=== PATIENT | male | born 1960 | race Caucasian/White ===

== ENCOUNTER 2020-02-25 18:17 | Emergency (ER) | payer MEDICAID ==
[~2020-02-25] VITALS: Ht 170.2 cm; Wt 86.4 kg
[~2020-02-25 18:17] MED LIST: HYDR-4353 PO
[2020-02-25 18:21] VITALS: BP 163/87
[2020-02-25] MEDS ORDERED: IBUP-1985 PO (19:42)
== END 2020-02-25 20:00 | disposition home or self-care (01) ==
LOC: ER 18:18
DX: S29.011A Strain of muscle and tendon of front wall of thorax, initial encounter (principal); I10 Essential (primary) hypertension; E78.00 Pure hypercholesterolemia, unspecified; G89.29 Other chronic pain; X58.XXXA Exposure to other specified factors, initial encounter; Y93.89 Activity, other specified; Y92.89 Other specified places as the place of occurrence of the external cause; Y99.9 Unspecified external cause status
CPT/HCPCS: 71045; 99283

== ENCOUNTER 2020-04-07 08:10 | Emergency (ER) | payer MEDICAID ==
[~2020-04-07] VITALS: Ht 167.6 cm; Wt 88.2 kg
[~2020-04-07 08:10] MED LIST changes: +IBUP-1985 PO
[2020-04-07 08:36] LABS: BASOPHILS % (AUTO) 0.8 % (0-1); EOSINOPHILS # (AUTO) 0.1 X10'3 (0-0.9); EOSINOPHILS % (AUTO) 1.5 % (0-6); HEMATOCRIT 44.4 % (42.0-52.0); HEMOGLOBIN 14.7 g/dl (14.0-17.9); LYMPHOCYTES # (AUTO) 1.8 X10'3 (1.1-4.8); LYMPHOCYTES % (AUTO) 30.5 % (21-51); MEAN CORPUSCULAR HEMOGLOBIN 29.3 PG (27.0-31.0); MEAN CORPUSCULAR HGB CONC 33.2 g/dL (33.0-36.5); MEAN CORPUSCULAR VOLUME 88.2 FL (78-98); MONOCYTES # (AUTO) 0.5 X10'3 (0-0.9); NEUTROPHILS # (AUTO) 3.5 X10'3 (1.8-7.7); NEUTROPHILS % (AUTO) 59.2 % (42-75); PLATELET COUNT 213 X10'3 (140-440); RED BLOOD COUNT 5.03 X10'6 (4.70-6.10); RED CELL DISTRIBUTION WIDTH 14.9 % (11.5-14.5); WHITE BLOOD COUNT 5.9 X10'3 (4.5-11.0)
[2020-04-07 09:00] LABS: ALANINE AMINOTRANSFERASE 21 U/L (12-78); ALBUMIN 3.8 G/DL (3.4-5.0); ALKALINE PHOSPHATASE 73 IU/L (46-116); ANION GAP 11 (8-16); ASPARTATE AMINO TRANSFERASE 14 U/L (10-37); BILIRUBIN,TOTAL 0.5 MG/DL (0.1-1.0); BLOOD UREA NITROGEN 12 MG/DL (7-18); BUN/CREATININE RATIO 9.4 (5.4-32.0); CALCIUM 8.7 MG/DL (8.5-10.1); CHLORIDE 104 MMOL/L (99-107); CREATININE 1.27 MG/DL (0.60-1.10); GLUCOSE 105 MG/DL (70-104); POTASSIUM 4.1 MMOL/L (3.5-5.1); SODIUM 141 MMOL/L (135-145); TOTAL CARBON DIOXIDE 26.1 MMOL/L (24-32); TOTAL PROTEIN 7.5 G/DL (6.4-8.2); eGFR 58 ML/MIN
[2020-04-07] MEDS ORDERED: normal saline 1000ml 1,000 ML IV ONE (09:40)
[2020-04-07 11:06] LABS: CLARITY,URINE CLEAR (Clear); COLOR,URINE STRAW (Yellow); GLUCOSE, URINE NEGATIVE (Neg); KETONES,URINE NEGATIVE (Neg); LEUKOCYTE ESTERASE ,URINE NEGATIVE (Neg); NITRITES, URINE NEGATIVE (Neg); OCCULT BLOOD,URINE NEGATIVE (Neg); PROTEIN,URINE NEGATIVE (Neg); UROBILINOGEN,URINE 0.2 E.U/dL (0.2-1.0)
[2020-04-07 11:10] LABS: UA COLLECTION TYPE CLN CATCH MIDSTREAM
[2020-04-07 11:11] VITALS: BP 132/79
== END 2020-04-07 11:21 | disposition home or self-care (01) ==
LOC: ER 08:11
DX: E86.0 Dehydration (principal); R42 Dizziness and giddiness; I10 Essential (primary) hypertension; E78.00 Pure hypercholesterolemia, unspecified; G89.29 Other chronic pain; F41.9 Anxiety disorder, unspecified; F32.9 Major depressive disorder, single episode, unspecified; Z72.89 Other problems related to lifestyle; Z79.899 Other long term (current) drug therapy
CPT/HCPCS: 36415; 70450; 71045; 80053; 81003; 84484; 85025; 93005; 96360; 99285; J7030

== ENCOUNTER 2020-09-05 16:07 | Emergency (ER) | payer MEDICAID, OTHER ==
[~2020-09-05] VITALS: Ht 170.2 cm; Wt 88.6 kg
[2020-09-05] MEDS ORDERED: cyclobenzaprine 10mg tablet PO ONE (16:35)
[2020-09-05] MEDS ORDERED: ketorolac tromethamine 15mg/ml inj. IM ONE (16:35)
[2020-09-05] MEDS ORDERED: IBUP-1984 PO (16:35)
[2020-09-05] MEDS ORDERED: ORPH100T2 PO (16:35)
[2020-09-05 17:08] VITALS: BP 143/87
[2020-09-06] MEDS ORDERED: TRAM50TA2 PO (14:43)
== END 2020-09-05 17:10 | disposition home or self-care (01) ==
LOC: ER 16:07
DX: M54.5 Low back pain (principal); E78.00 Pure hypercholesterolemia, unspecified; I10 Essential (primary) hypertension; G89.29 Other chronic pain; Z72.89 Other problems related to lifestyle; Z79.899 Other long term (current) drug therapy
CPT/HCPCS: 96372; 99284; J1885

== ENCOUNTER 2020-09-06 11:16 | Emergency (ER) | payer OTHER ==
[~2020-09-06] VITALS: Ht 170.2 cm; Wt 88.6 kg
[~2020-09-06 11:16] MED LIST changes: +IBUP-1984 PO; +ORPH100T2 PO
[2020-09-06 11:41] VITALS: BP 131/82
[2020-09-06] MEDS ORDERED: cyclobenzaprine 10mg tablet PO ONE (14:05)
[2020-09-06] MEDS ORDERED: ketorolac tromethamine 15mg/ml inj. IM ONE (14:05)
[2020-09-06] MEDS ORDERED: TRAM50TA2 PO (14:43)
== END 2020-09-06 15:03 | disposition home or self-care (01) ==
LOC: ER 11:16
DX: M54.41 Lumbago with sciatica, right side (principal); E78.00 Pure hypercholesterolemia, unspecified; I10 Essential (primary) hypertension; G89.29 Other chronic pain
CPT/HCPCS: 72100; 96372; 99284; J1885

== ENCOUNTER 2020-12-15 06:12 | Emergency (ER) | payer MEDICAID, OTHER ==
[~2020-12-15] VITALS: Ht 170.2 cm; Wt 84.1 kg
[~2020-12-15 06:12] MED LIST changes: -IBUP-1984 PO
[2020-12-15 06:49] LABS: BASOPHILS # (AUTO) 0.1 X10'3 (0-0.2); EOSINOPHILS # (AUTO) 0.1 X10'3 (0-0.9); EOSINOPHILS % (AUTO) 1.4 % (0-6); HEMATOCRIT 44.9 % (42.0-52.0); LYMPHOCYTES # (AUTO) 2.2 X10'3 (1.1-4.8); LYMPHOCYTES % (AUTO) 27.9 % (21-51); MEAN CORPUSCULAR HEMOGLOBIN 30.3 PG (27.0-31.0); MEAN CORPUSCULAR HGB CONC 33.4 g/dL (33.0-36.5); MEAN CORPUSCULAR VOLUME 90.7 FL (78-98); MEAN PLATELET VOLUME 8.1 FL (7.4-10.4); MONOCYTES # (AUTO) 0.7 X10'3 (0-0.9); MONOCYTES % (AUTO) 9.4 % (2-12); NEUTROPHILS # (AUTO) 4.8 X10'3 (1.8-7.7); NEUTROPHILS % (AUTO) 60.3 % (42-75); PLATELET COUNT 225 X10'3 (140-440); RED BLOOD COUNT 4.95 X10'6 (4.70-6.10); RED CELL DISTRIBUTION WIDTH 14.9 % (11.5-14.5); WHITE BLOOD COUNT 7.9 X10'3 (4.5-11.0)
[2020-12-15 06:56] LABS: ALANINE AMINOTRANSFERASE 33 U/L (12-78); ALBUMIN 3.4 G/DL (3.4-5.0); ALBUMIN/GLOBULIN RATIO 0.9 (1.1-1.5); ALKALINE PHOSPHATASE 73 IU/L (46-116); ANION GAP 11 (8-16); ASPARTATE AMINO TRANSFERASE 17 U/L (10-37); BILIRUBIN,TOTAL 0.4 MG/DL (0.1-1.0); BLOOD UREA NITROGEN 11 MG/DL (7-18); BUN/CREATININE RATIO 9.8 (5.4-32.0); CALCIUM 8.3 MG/DL (8.5-10.1); CHLORIDE 102 MMOL/L (99-107); CREATININE 1.12 MG/DL (0.60-1.10); ETHANOL < 0.010 GM/DL (0.0-0.010); GLUCOSE 187 MG/DL (70-104); SODIUM 138 MMOL/L (135-145); TOTAL CARBON DIOXIDE 25.3 MMOL/L (24-32); TOTAL PROTEIN 7.1 G/DL (6.4-8.2); eGFR 67 ML/MIN
[2020-12-15] MEDS ORDERED: potassium Cl 20 mEq SR tablet PO ONE (07:10)
--- NOTE | 2020-12-15 07:20 | NUR ---
Lizabeth/girlfriend at bedside.
[2020-12-15 07:25] LABS: CLARITY,URINE CLEAR (Clear); COLOR,URINE YELLOW (Yellow); GLUCOSE, URINE NEGATIVE (Neg); KETONES,URINE NEGATIVE (Neg); LEUKOCYTE ESTERASE ,URINE TRACE (Neg); NITRITES, URINE NEGATIVE (Neg); OCCULT BLOOD,URINE TRACE-INTACT (Neg); PROTEIN,URINE 30 mg/dl (Neg)
[2020-12-15 07:32] LABS: UA COLLECTION TYPE STRAIGHT CATH
[2020-12-15 07:33] LABS: BACTERIA,URINE FEW /HPF (Neg); MUCUS STRANDS FEW /LPF (Neg); RBC,URINE 0-2 /HPF (0-2); SQUAMOUS EPITHELIAL CELL,UR NONE SEEN /LPF (FEW); WBC,URINE 0-4 /HPF (0-4)
[2020-12-15 07:34] LABS: URINE AMPHETAMINE SCREEN POSITIVE (Neg); URINE BARBITUATE SCREEN NEGATIVE (Neg); URINE BENZODIAZEPINES SCREEN NEGATIVE (Neg); URINE CANNABINOID SCREEN NEGATIVE (Neg); URINE COCAINE SCREEN NEGATIVE (Neg); URINE METHADONE SCREEN NEGATIVE (Neg); URINE OPIATE SCREEN NEGATIVE (Neg); URINE PHENCYCLIDINE SCREEN NEGATIVE (Neg)
--- NOTE | 2020-12-15 07:37 | NUR ---
majo/girlfriend will transport patient home upon dc [phone].
[2020-12-15] MEDS ORDERED: epiNEPHrine 0.1mg/ml 10ml syringe ONE (08:00)
--- NOTE | 2020-12-15 08:04 | NUR ---
O2 turned off per Dr Grayson to see how the pt does on room air.
--- NOTE | 2020-12-15 08:42 | NUR ---
DR. FREY AT BEDSIDE WILL ORDER DC.
[2020-12-15] MEDS ORDERED: NALO4SPR (08:46)
--- NOTE | 2020-12-15 08:51 | NUR ---
CALLED [facility] BUT GOES STRAIGHT TO [employer],LEFT A DETAILED MESSAGE.PATIENT TO CONTACT ANOTHER FRIEND TO GIVE HIM A RIDE HOME.
[2020-12-15 09:11] VITALS: BP 161/97
== END 2020-12-15 09:14 | disposition left against medical advice (07) ==
LOC: ER 06:12
DX: T40.2X1A Poisoning by other opioids, accidental (unintentional), initial encounter (principal); J96.00 Acute respiratory failure, unspecified whether with hypoxia or hypercapnia; E78.00 Pure hypercholesterolemia, unspecified; I10 Essential (primary) hypertension; G89.29 Other chronic pain; F41.9 Anxiety disorder, unspecified; F32.9 Major depressive disorder, single episode, unspecified; Z72.89 Other problems related to lifestyle; Z79.899 Other long term (current) drug therapy; Y92.89 Other specified places as the place of occurrence of the external cause
CPT/HCPCS: 36415; 71045; 80053; 80305; 80320; 81001; 82948; 85025; 87088; 93005; 99285; J0171

== ENCOUNTER 2022-09-11 06:44 | Emergency (ER) | payer MEDICAID ==
[~2022-09-11] VITALS: Ht 170.2 cm; Wt 79.5 kg
[~2022-09-11 06:44] MED LIST changes: +NALO4SPR
[2022-09-11] MEDS ORDERED: LIDOcaine 5% patch TP STA (07:19)
[2022-09-11] MEDS ORDERED: ketorolac trometh inj. 60 MG/2 ML VIAL IM ONE (07:20)
[2022-09-11] MEDS ORDERED: acetaminophen 325mg tablet PO ONE (07:20)
[2022-09-11 08:27] VITALS: BP 150/84
== END 2022-09-11 08:28 | disposition home or self-care (01) ==
LOC: ER 06:45
DX: M54.41 Lumbago with sciatica, right side (principal); G89.29 Other chronic pain; E78.00 Pure hypercholesterolemia, unspecified; I10 Essential (primary) hypertension; F41.9 Anxiety disorder, unspecified; F32.A Depression, unspecified; Z72.89 Other problems related to lifestyle; Z79.899 Other long term (current) drug therapy
CPT/HCPCS: 96372; 99283; J1885

== ENCOUNTER 2023-04-01 15:06 | Inpatient (IN) | payer MEDICAID ==
[~2023-04-01] VITALS: Ht 168.9 cm; Wt 72.0 kg
[~2023-04-01 15:06] MED LIST changes: -ORPH100T2 PO; +ORPH100T4 PO
[2023-04-01 15:31] LABS: BASOPHILS # (AUTO) 0.1 X10'3 (0-0.2); BASOPHILS % (AUTO) 0.9 % (0-1); EOSINOPHILS # (AUTO) 0.1 X10'3 (0-0.9); EOSINOPHILS % (AUTO) 1.4 % (0-6); HEMATOCRIT 47.6 % (42.0-52.0); HEMOGLOBIN 15.7 g/dl (14.0-17.9); LYMPHOCYTES % (AUTO) 25.1 % (21-51); MEAN CORPUSCULAR HEMOGLOBIN 29.6 PG (27.0-31.0); MEAN CORPUSCULAR VOLUME 89.7 FL (78-98); MEAN PLATELET VOLUME 8.3 FL (7.4-10.4); MONOCYTES # (AUTO) 0.5 X10'3 (0-0.9); MONOCYTES % (AUTO) 6.5 % (2-12); NEUTROPHILS # (AUTO) 5.2 X10'3 (1.8-7.7); NEUTROPHILS % (AUTO) 66.1 % (42-75); PLATELET COUNT 233 X10'3 (140-440); RED BLOOD COUNT 5.31 X10'6 (4.70-6.10); RED CELL DISTRIBUTION WIDTH 14.4 % (11.5-14.5); WHITE BLOOD COUNT 7.9 X10'3 (4.5-11.0)
[2023-04-01 15:47] LABS: ALANINE AMINOTRANSFERASE 16 U/L (12-78); ALBUMIN 3.7 G/DL (3.4-5.0); ALKALINE PHOSPHATASE 67 IU/L (46-116); ANION GAP 12 (8-16); ASPARTATE AMINO TRANSFERASE 11 U/L (10-37); BILIRUBIN,TOTAL 0.5 MG/DL (0.1-1.0); BLOOD UREA NITROGEN 19 MG/DL (7-18); CALCIUM 8.9 MG/DL (8.5-10.1); CHLORIDE 104 MMOL/L (99-107); CREATININE 0.95 MG/DL (0.60-1.10); GLUCOSE 91 MG/DL (70-104); POTASSIUM 3.2 MMOL/L (3.5-5.1); SODIUM 137 MMOL/L (135-145); TOTAL CARBON DIOXIDE 21.3 MMOL/L (24-32); TOTAL PROTEIN 7.3 G/DL (6.4-8.2); eGFR 81 ML/MIN
[2023-04-01] MEDS ORDERED: magnesium Cl slow-release 64mg tablet PO ONE (18:20)
[2023-04-01] MEDS ORDERED: potassium Cl 20 mEq SR tablet PO ONE (18:20)
--- NOTE | 2023-04-01 18:45 | NUR ---
Pt asked for a blanket, covering up the patient and he was crying, went to the side of the bed to ask him what was wrong. He made statements "They follow me and want me to go back to senior living and if they think that is going to happen I am going to kill them all." He sat fast up in bed and slammed his fist down into the bed. I jumped back and called for security. He did calm down.
[2023-04-01] MEDS ORDERED: LORazepam 1 MG tablet PO ONE (18:50)
[2023-04-01 19:33] LABS: URINE AMPHETAMINE SCREEN NEGATIVE (Neg); URINE BARBITUATE SCREEN NEGATIVE (Neg); URINE BENZODIAZEPINES SCREEN NEGATIVE (Neg); URINE CANNABINOID SCREEN NEGATIVE (Neg); URINE COCAINE SCREEN NEGATIVE (Neg); URINE METHADONE SCREEN NEGATIVE (Neg); URINE OPIATE SCREEN NEGATIVE (Neg); URINE PHENCYCLIDINE SCREEN NEGATIVE (Neg)
[2023-04-01 20:33] LABS: CLARITY,URINE CLEAR (Clear); COLOR,URINE YELLOW (Yellow); GLUCOSE, URINE NEGATIVE (Neg); KETONES,URINE NEGATIVE (Neg); LEUKOCYTE ESTERASE ,URINE NEGATIVE (Neg); NITRITES, URINE NEGATIVE (Neg); OCCULT BLOOD,URINE TRACE-INTACT (Neg); PROTEIN,URINE NEGATIVE (Neg); UROBILINOGEN,URINE 0.2 E.U/dL (0.2-1.0)
[2023-04-01 20:39] LABS: UA COLLECTION TYPE CLN CATCH MIDSTREAM
[2023-04-01 20:40] LABS: MUCUS STRANDS FEW /LPF (Neg); SQUAMOUS EPITHELIAL CELL,UR FEW /LPF (FEW)
[2023-04-01 20:41] LABS: BACTERIA,URINE NONE SEEN /HPF (Neg); WBC,URINE 0-4 /HPF (0-4)
--- NOTE | 2023-04-02 01:30 | NUR ---
PT IS AWAKE AND HAS REQUESTED TO USE THE RESTROOM, ASKED FOR A TV, SHOWER, AND TOOTHBRUSH AND TOOTHPASTE. PT HAS BEEN INFORMED THAT THERE IS NO TV OR SHOWER IN THE ER. PT HAS BEEN GIVEN A TOOTHBRUSH AND TOOTHPASTE AND OFFERED BATHWIPES AN ALTERNATIVE TO SHOWER. PT IS STATING HE IS IN A PRISION AND IS REQUESTING A NEW ROOM. PT INFORMED THAT HE WILL NOT BE MOVED TO A NEW ROOM TONIGHT. PT APPEARS TO BE RESPONDING TO INTERNAL STIMULI AT THIS TIME STATING "THEY ALL THINK THIS IS FUNNY". ATTEMPTED TO REORIENT PT BUT PT IS PERSISTANTLY STATING THAT "PEOPLE FROM [employer]" ARE FOLLOWING HIM AND LAUGHING.
[2023-04-02] MEDS: Melatonin 3mg tablet PO PRN ×2 (01:55→20:17)
--- NOTE | 2023-04-02 08:00 | NUR ---
received patient from ED. patient oriented to room. call light and fresh water at bedside.
--- NOTE | 2023-04-02 10:15 | NUR ---
patient ate breakfast and was given tv. watched tv and staff assisted him to bathroom with toiletries to clean himself up. he yelled at staff and called staff "Liars" when we denied him the ability to shower in ED overflow. patient requests ibuprofen for pain in back. medications reconciled. continues to talk loudly and spiratic pacing back and forth.
[2023-04-02] MEDS ORDERED: IBUP-1984 PO (11:48)
[2023-04-02] MEDS ORDERED: LISI5TAB22 PO (11:48)
--- NOTE | 2023-04-02 12:15 | NUR ---
currently eating lunch. all needs met by staff.
[2023-04-02] MEDS: ibuprofen tablet 400 MG TABLET PO SCH ×2 (13:32→18:15)
[2023-04-02] MEDS: LORazepam 1 MG tablet PO PRN ×2 (14:43→20:20)
--- NOTE | 2023-04-02 15:05 | NUR ---
pt continues to pace in room asking for his phone. appears to be escalating. MD aware. new orders for a prn anxiety medications. will continue to monitor.
--- NOTE | 2023-04-02 17:29 | NUR ---
patient resting in bed. will report to weight shifter.vital signs stable. all needs met by staff. bed in low position and call light in reach. will continue to monitor.
--- NOTE | 2023-04-02 17:31 | NUR ---
Patient brushed his teeth and cleaned up before getting dressed to leave. patient signed discharge paper work. all belongings accounted for and left with patient.
[2023-04-02] MEDS: OLANZapine 5mg rapidly disint. tablet PO SCH (18:15)
--- NOTE | 2023-04-02 19:17 | NUR ---
Discussed patient with Dr. Powers regarding patient and medications ordered. The patient is intrussive. He denies that he is suicidal and exclaimed "hell no!. I don't belong here" He stated he only wanted help with anxiety. His mood is very labile and goes from agitation to laughing. He stated, "I was getting so pissed I wanted to hurt someone" He stated that people from were following him. He is intrussive.
--- NOTE | 2023-04-02 20:00 | NUR ---
The patient has been accepted at [facility] for transfer later this evening.
[2023-04-02] MEDS ORDERED: loperamide 2mg capsule PO PRN (21:45)
[2023-04-02] MEDS ORDERED: mag hydrox/Alum hydrox/simeth 30ml oral suspension PO PRN (21:45)
[2023-04-02] MEDS ORDERED: traZODone 50mg tablet PO PRN (21:45)
[2023-04-02] MEDS ORDERED: acetaminophen 325mg tablet PO PRN ×2 (21:45)
[2023-04-02] MEDS ORDERED: magnesium hydroxide 30ml (MOM) UD suspension PO PRN (21:45)
[2023-04-02] MEDS ORDERED: NICOTINE POLACRILEX 2 MG LOZENGE BC PRN (21:45)
[2023-04-02 21:57] VITALS: BP 122/81
--- NOTE | 2023-04-03 04:23 | NUR ---
SINGLE NEEDLE TUFTING MACHINE OPERATOR NOTE: LEGAL HOLD: 5150 for DTO REASON FOR ADMIT: Client was placed on a 5150 for disorganized thought, paranoid/persecutory delusions, and labile mood. Client reported thoughts of hurting others. Reports one year of sobriety. Hx; of Methamphetamine use and opioid dependence. INTERVENTIONS: Admission assessments. RESPONSE: Client arrived on the unit at 21:25. He declined a shower. Client was irritable and turned his back to the RN during admission. Refused to answer questions. Feel asleep w/o difficulty.
[2023-04-03] MEDS: lisinopril 5mg tablet PO SCH (07:57)
[2023-04-03] MEDS: OLANZapine 5mg rapidly disint. tablet PO SCH ×2 (07:58→20:00)
[2023-04-03 08:00] VITALS: BP 131/67
[2023-04-03] MEDS: nicotine 21mg patch - 24 hr TD SCH (08:00)
[2023-04-03] MEDS: ibuprofen tablet 400 MG TABLET PO SCH ×3 (08:36→17:09)
[2023-04-03 09:35] LABS: HEMOGLOBIN A1C 5.9 % (4.5-6.2)
[2023-04-03 09:44] VITALS: BP 131/67
--- NOTE | 2023-04-03 17:14 | NUR ---
Nursing Progress Note: Problem: Client was placed on a 5150 for disorganized thought, paranoid/persecutory delusions, and labile mood. Client reported thoughts of hurting others. Reports one year of sobriety. Hx; of Methamphetamine use and opioid dependence. Interventions: Introduced self and established rapport, maintained a safe and supportive environment, ensured contract for safety, provided clear and simple instructions, encouraged participation on the unit and maintained q15 safety checks. Response: Patient awakened for breakfast and came down late. He accepted AM meds then went back to bed. Patient "thinks" he saw a provider today, "but I don't remember". He did not get up for lunch and has laid in bed all day making demands. Patient is labile and looking for something to agitate him. If he asks for something and you bring it, he is going to ask for more. Patient is upset that he has to spend another day here. Plan: Continue hospitalization/stabilization, medication adjustments and a safe and supportive environment.
[2023-04-03] MEDS ORDERED: LORazepam 2 mg/ml vial ONE (18:24)
[2023-04-03] MEDS ORDERED: haloperidol lactate 5mg/ml inj ONE (18:25)
[2023-04-03] MEDS ORDERED: diphenhydrAMINE 50 mg/ml inj ONE (18:25)
--- NOTE | 2023-04-03 18:38 | NUR ---
Patient is very labile at shift change. He threatens others. Security called. Patient moved to Observation room. Ativan 2 mg IM, Benadryl 50 mg IM, and Haldol 50 mg IM. Patient was then left in observation room and observed. Patient yells obscenities, pounds his fists against the door and other objects. Patient voided on the floor. Patient was spoken with in a quiet and calm manner. He continued to escalate. As security was backing out of the room patient began to threaten again, he pounded his fist into his palm. At that time this patient was put into four point restraints.
[2023-04-03] MEDS ORDERED: LORazepam 2 mg/ml vial IM ONE ×2 (19:20→22:30)
--- NOTE | 2023-04-03 19:21 | NUR ---
Patient continues to yell and be disruptive even while in restraints.
--- NOTE | 2023-04-03 19:40 | NUR ---
Patient attempted to remove his restraints. He remains labile. Per Bigg SAWANT, an additional Ativan 1 mg was given IM to the left thigh.
[2023-04-03] MEDS: docusate sod 100mg capsule PO SCH (20:00)
[2023-04-03] MEDS: traZODone 50mg tablet PO PRN (21:52)
[2023-04-03] MEDS: hydrOXYzine 25 MG tablet PO PRN (21:52)
[2023-04-03] MEDS: Melatonin 3mg tablet PO PRN (21:52)
--- NOTE | 2023-04-03 21:53 | NUR ---
Patient continues to exhibit labile activity, "I'm always angry, I treat myself, I'm going to walk away from here as soon as I get out. Patient complies with night medications. He calls his Zyprexa "Zombie pills." Patient demands relief from the four point restraints. His behavior although somewhat improved is still resistant to restraints and redirection/calming.
[2023-04-03] MEDS ORDERED: diphenhydrAMINE 50 mg/ml inj IM ONE (22:30)
--- NOTE | 2023-04-03 22:32 | NUR ---
Patient remains uncooperative and escalates verbally with profanity. He bites at restraints and tries to free himself. Bigg SAWANT contacted. Order received to continue with restraints, Ativan 2 mg IM, and then Benadryl 50 mg IM also. Patient in view on monitor. He yells at staff.
--- NOTE | 2023-04-04 00:15 | NUR ---
Patient is sleeping quietly on his left side in the observation room. Knees flexed.
--- NOTE | 2023-04-04 00:26 | NUR ---
SECLUSION/CHEMICAL/MECHANICAL RESTRAINT: At 18:20 the client could be heard yelling in the roberts. Client began to threaten staff stating, "I'm going to remember you and get you when I get out of here!" The client shouted accusations against all staff on the unit. Ras Fu RN attempted to redirect and verbally de-escalate the client. Security was notified and Tad Kauffman and Corazon Armstrong responded. The clients agitation increased. JESE Alvares was notified and an order for 2 mg Ativan IM, 50 mg Diphenhydramine IM, and 10 mg Haldol IM was obtained. Medications were administered, at 18:25, in the clients room and client was escorted to the seclusion room by Fermin Menendez CRN, Matt y, Joe D, Luis C, LVN and . The client continued to scream, threaten, and resist. While client was in seclusion room he began to beat on the wall with his fist and yell. Client urinated on the floor, twice, in the seclusion room. At 19:00 client was placed in mechanical restraints. Clients agitation, yelling, and threatening continued. An additional 1 mg Ativan IM was administered at 19:30. Client was monitored and fluids were periodically offered. Client took PM medications. At 23:46 client was released from restraints.
--- NOTE | 2023-04-04 02:32 | NUR ---
Nursing Progress Note: Problem: Client was placed on a 5150 for disorganized thought, paranoid/persecutory delusions, and labile mood. Client reported thoughts of hurting others. Reports one year of sobriety. Hx; of Methamphetamine use and opioid dependence. Interventions: Introduced self and established rapport, maintained a safe and supportive environment, ensured contract for safety, provided clear and simple instructions, encouraged participation on the unit and maintained q15 safety checks. Response: Following shift change this patient exhibited multiple outbursts and labile and threatening behavior. See Charge Nurse notes. This patient was placed in the observation room. He postured against staff and security. Patient restrained and sedated. Patient came out of restraints at 23:46 hours. At the time of this report patient is sleeping. Color is good. Respirations are normal. See previous notes. Plan: Continue hospitalization/stabilization, medication adjustments and a safe and supportive environment.
--- NOTE | 2023-04-04 06:11 | NUR ---
Patient awoke in seclusion room. Mildly ataxic gait. Patient to bathroom to void. Patient requested belt and shoe laces. Tech explained to patient these items are restricted. Patient grumbled. He was then taken to his room where he laid down on his bed.
[2023-04-04] MEDS: lisinopril 5mg tablet PO SCH (08:00)
[2023-04-04] MEDS: nicotine 21mg patch - 24 hr TD SCH ×2 (08:00→08:06)
[2023-04-04] MEDS: hydrOXYzine 25 MG tablet PO PRN (08:01)
[2023-04-04] MEDS: OLANZapine 5mg rapidly disint. tablet PO SCH ×2 (08:01→20:00)
[2023-04-04] MEDS: docusate sod 100mg capsule PO SCH ×2 (08:01→20:00)
[2023-04-04] MEDS: LORazepam 1 MG tablet PO PRN (08:01)
[2023-04-04] MEDS: ibuprofen tablet 400 MG TABLET PO SCH ×3 (08:01→18:00)
[2023-04-04] MEDS: citalopram 20mg tablet PO SCH (08:01)
--- NOTE | 2023-04-04 15:15 | NUR ---
Nursing Progress Note: Problem: Client was placed on a 5150 for disorganized thought, paranoid/persecutory delusions, and labile mood. Client reported thoughts of hurting others. Reports one year of sobriety. Hx; of Methamphetamine use and opioid dependence. Interventions: Attempted 1:1 assessment, therapeutic communication, medication administration/education/monitoring, encouraged cooperation with unit procedures and assessments, fall prevention, provided direction, positive reinforcement, and Q15 minute safety checks. Response: Pt was up asking for a shower before breakfast. Pt refused vital signs and physical/mental health assessments. Pt showered and returned to bed. Pt declined to come to breakfast or snack. Pt was cooperative with his morning medication except for refusal of the nicotine patch. Lisinopril was held as pt did not allow his blood pressure and pulse to be checked this morning. Pt did come to the dining room for lunch. Pt appeared fatigued and slightly unsteady on his feet. No verbal or physical outbursts this shift. Plan: Continue hospitalization/stabilization, medication adjustments and a safe and supportive environment.
[2023-04-04 20:00] VITALS: BP 126/75
--- NOTE | 2023-04-05 03:01 | NUR ---
Nursing Progress Note: Problem: Client was placed on a 5150 for disorganized thought, paranoid/persecutory delusions, and labile mood. Client reported thoughts of hurting others. Reports one year of sobriety. Hx; of Methamphetamine use and opioid dependence. Interventions: Attempted 1:1 assessment, therapeutic communication, medication administration/education/monitoring, encouraged cooperation with unit procedures and assessments, fall prevention, provided direction, positive reinforcement, and Q15 minute safety checks. Response: This patient was sleeping in his room following shift change. 1:1 Interview at bedside. Patient was not cooperative with being interviewed. He grumbled, said some words under his breath, he ignored this narrative writer. The patient was uncooperative with further interview, he did not cooperate with the offer of his evening medications. The patient rolled over and ignored this narrative writer. Patients color was good, he was warm and dry with a regular rate and depth of respiration. Plan: Continue hospitalization/stabilization, medication adjustments and a safe and supportive environment.
[2023-04-05 08:00] VITALS: BP 142/81
[2023-04-05] MEDS: docusate sod 100mg capsule PO SCH ×2 (08:00→20:52)
[2023-04-05] MEDS: nicotine 21mg patch - 24 hr TD SCH (08:00)
[2023-04-05] MEDS: ibuprofen tablet 400 MG TABLET PO SCH ×3 (08:11→17:17)
[2023-04-05] MEDS: OLANZapine 5mg rapidly disint. tablet PO SCH ×2 (08:11→20:00)
[2023-04-05] MEDS: lisinopril 5mg tablet PO SCH (08:11)
[2023-04-05] MEDS: citalopram 20mg tablet PO SCH (08:38)
[2023-04-05] MEDS: LORazepam 1 MG tablet PO PRN ×2 (12:05→17:17)
--- NOTE | 2023-04-05 17:54 | NUR ---
Nursing Progress Note: Problem: Client was placed on a 5150 for disorganized thought, paranoid/persecutory delusions, and labile mood. Client reported thoughts of hurting others. Reports one year of sobriety. Hx; of Methamphetamine use and opioid dependence. Interventions: Attempted 1:1 assessment, therapeutic communication, medication administration/education/monitoring, encouraged cooperation with unit procedures and assessments, fall prevention, provided direction, positive reinforcement, and Q15 minute safety checks. Response: RN received pt. asleep in bed at start of shift. Pt. awoke shortly after and asking when he will see his provider today. Pt. took medication except stool softner, when pt. took medication pt. states, see, they just make you addicted to something else. 1:1 done at bedside, pt. denies SI/HI, A/V hallucinations, pt. is paranoid, states, You see I have to keep an eye on my truck, someones going to try to steal the wheels and rims. Pt. asks, Can I just set my bed right in front of this window to keep an eye on my truck?. Pt. given Ativan 1mg PRN with moderate effect. Pt. perseverates on discharge, constantly going up to nurses station to questions his hold paperwork. Pt. has poor insight into why hes hear, stating, you guys are keeping me here locked up for nothing, Im going to get a radio sales account executive and you will be sorry. Pt. given Ativan 1mg PRN with good effect. Pt. allowed to shave with standby assist. Plan: Continue hospitalization/stabilization, medication adjustments and a safe and supportive environment.
[2023-04-05 19:50] VITALS: BP 122/82
[2023-04-05] MEDS: traZODone 50mg tablet PO PRN (20:53)
[2023-04-05] MEDS: Melatonin 3mg tablet PO PRN (20:54)
[2023-04-05] MEDS: hydrOXYzine 25 MG tablet PO PRN (20:54)
--- NOTE | 2023-04-06 01:34 | NUR ---
Nursing Progress Note: Problem: Client was placed on a 5150 for disorganized thought, paranoid/persecutory delusions, and labile mood. Client reported thoughts of hurting others. Reports one year of sobriety. Hx; of Methamphetamine use and opioid dependence. Interventions: Attempted 1:1 assessment, therapeutic communication, medication administration/education/monitoring, encouraged cooperation with unit procedures and assessments, fall prevention, provided direction, positive reinforcement, and Q15 minute safety checks. Response: Pt was in his room at change of shift. Introduced myself to patient and he replied "oh you're the one thats going to tie me up, someone said that goes on here." Pt denies s/i, denies a/vh. Asked patient about H/I? Pt states "Oh ya there are some people I'd like to hurt but i'll behave." Pt socialized with peers and had snack in the group room. Pt took HS meds and took atarax and melatonin prn but declined prn trazodone for sleep. "I dont like that trazadone, it's no good." Pt asked what time the doctor would see him tomorrow. Explained to patient we don't have times listed but someone will be here to see patients. Pt replied "Ok, sounds good. Where do I file a grievance." Advised patient he can file a grievance at any time and asked pt if he needs anything else. Pt states "No, I guess that's all for now." Pt went to sleep. Plan: Continue hospitalization/stabilization, medication adjustments and a safe and supportive environment.
[2023-04-06 07:30] VITALS: BP 128/64
[2023-04-06] MEDS: docusate sod 100mg capsule PO SCH (08:00)
[2023-04-06] MEDS: nicotine 21mg patch - 24 hr TD SCH (08:00)
[2023-04-06] MEDS: citalopram 20mg tablet PO SCH (08:18)
[2023-04-06] MEDS: OLANZapine 5mg rapidly disint. tablet PO SCH (08:19)
[2023-04-06] MEDS: ibuprofen tablet 400 MG TABLET PO SCH ×2 (08:19→13:24)
[2023-04-06 08:20] VITALS: BP_SYST 128
[2023-04-06] MEDS: lisinopril 5mg tablet PO SCH (08:20)
--- NOTE | 2023-04-06 09:49 | NUR ---
Initial: Pt admit DX MDD and paranoid delusions per EMR. PO ~83% avg regular diet w/ snacks meeting estimated needs. No number of BM's noted but moderate stools 7/2 documented in EMR; receiving routine colace. No nutrition intervention at this time. Will continue to follow. Rec: 1. continue regular diet 2. routine bowel care 3. weekly wt Addendum: 04/06/23 at [address] Amended: Links added.
[2023-04-06] MEDS: LORazepam 1 MG tablet PO PRN (11:30)
--- NOTE | 2023-04-06 13:04 | NUR ---
5250 upheld for GD and DTO
--- NOTE | 2023-04-06 15:45 | NUR ---
Pt. demanding to have phone, pt. told he will have to wait. Pt. yells, "Then you bring me the phone when it's ready because I'm not walking back here". Pt. offered PRN medication and took Atarax 50mg. Pt. begins walking back to his room, then turns around and yells, "What is this Shit?! You gave me fentanyl! Pt. told to lower his voice but pt. continues to yell and walk towards this RN. Pt. demands that RN give him Ativan as well. Pt. yells, "You've been treating me like shit all day, I'm sick of all you all! I don't have to lower my voice if I don't want to, I'll treat people any damn way I want!" Pt. told to go back to his room, and continues yelling. Security called and pt. went back to his room. Pt. told to give his necklace to staff because it's contraband, pt. initially refused and gave it up only when security told him to. Pt. making threats towards staff and security, stating, "Just wait until I'm out of here, you'll be ing sorry!" Pt. told to stop swearing but states, "I can say anything I want, it's not against the law." Provider came and talked with pt. Pt. demanding to be discharged.
[2023-04-06] MEDS ORDERED: HYDR-3686 PO (16:12)
[2023-04-06] MEDS ORDERED: LISI5TAB22 PO (16:12)
[2023-04-06] MEDS ORDERED: NICO-907 BC (16:12)
[2023-04-06] MEDS ORDERED: OLAN10TA73 PO (16:12)
[2023-04-06] MEDS ORDERED: NICO-687 TD (16:12)
[2023-04-06] MEDS ORDERED: CITA-124 PO (16:12)
--- NOTE | 2023-04-06 16:30 | NUR ---
DISCHARGE NOTE: Pt. discharged to his truck with security guards dispatcher after making threats toward staff. Pt. signed all discharge paperwork, including discharge medications, emergency phone numbers including 911, and fire arms restriction. Pt. verbalizes understanding of paperwork. Pt. denies SI, A/V hallucinations. Pt. is A&Ox3 except to circumstance.
== END 2023-04-06 16:30 | disposition home or self-care (01) | DRG 751 ==
LOC: ER 15:07 → ADULT MH 04-02 19:30
PROVIDERS: ADMIT Psychiatry & Neurology Psychiatry; ATTEND Psychiatry & Neurology Psychiatry
DX: F33.1 Major depressive disorder, recurrent, moderate (principal); E78.00 Pure hypercholesterolemia, unspecified; Z20.822 Contact with and (suspected) exposure to COVID-19; I10 Essential (primary) hypertension; G89.29 Other chronic pain; M54.50 Low back pain, unspecified; K59.00 Constipation, unspecified; R63.4 Abnormal weight loss; F17.210 Nicotine dependence, cigarettes, uncomplicated; F41.9 Anxiety disorder, unspecified; Z56.0 Unemployment, unspecified; Z59.02 Unsheltered homelessness; Z78.9 Other specified health status; Z68.25 Body mass index [BMI] 25.0-25.9, adult; Z79.899 Other long term (current) drug therapy; Z71.6 Tobacco abuse counseling
CPT/HCPCS: 36415; 71045; 80053; 80305; 81001; 83036; 83721; 83880; 84443; 84484; 85025; 87081; 87811; 93005; 99285; J1200; J1630; J2060; Q0177

== ENCOUNTER 2023-04-10 19:02 | Emergency (ER) | payer MEDICAID ==
[~2023-04-10] VITALS: Ht 170.2 cm; Wt 75.0 kg
[~2023-04-10 19:02] MED LIST changes: +CITA-124 PO; +HYDR-3686 PO; -HYDR-4353 PO; +IBUP-1984 PO; -IBUP-1985 PO; +LISI5TAB22 PO; -NALO4SPR; +NICO-687 TD; +NICO-907 BC; +OLAN10TA73 PO; -ORPH100T4 PO
[2023-04-10 19:38] VITALS: BP 100/68
[2023-04-10 20:14] LABS: BASOPHILS # (AUTO) 0.1 X10'3 (0-0.2); BASOPHILS % (AUTO) 0.9 % (0-1); EOSINOPHILS # (AUTO) 0.3 X10'3 (0-0.9); EOSINOPHILS % (AUTO) 3.3 % (0-6); HEMATOCRIT 43.6 % (42.0-52.0); HEMOGLOBIN 14.5 g/dl (14.0-17.9); LYMPHOCYTES # (AUTO) 2.7 X10'3 (1.1-4.8); LYMPHOCYTES % (AUTO) 31.8 % (21-51); MEAN CORPUSCULAR HEMOGLOBIN 30.1 PG (27.0-31.0); MEAN CORPUSCULAR HGB CONC 33.4 g/dL (33.0-36.5); MEAN CORPUSCULAR VOLUME 90.1 FL (78-98); MEAN PLATELET VOLUME 8.2 FL (7.4-10.4); MONOCYTES # (AUTO) 0.8 X10'3 (0-0.9); MONOCYTES % (AUTO) 9.7 % (2-12); NEUTROPHILS # (AUTO) 4.6 X10'3 (1.8-7.7); NEUTROPHILS % (AUTO) 54.3 % (42-75); PLATELET COUNT 234 X10'3 (140-440); RED BLOOD COUNT 4.83 X10'6 (4.70-6.10); RED CELL DISTRIBUTION WIDTH 14.4 % (11.5-14.5); WHITE BLOOD COUNT 8.5 X10'3 (4.5-11.0)
[2023-04-10 20:35] LABS: ALANINE AMINOTRANSFERASE 20 U/L (12-78); ALBUMIN 3.5 G/DL (3.4-5.0); ALBUMIN/GLOBULIN RATIO 1.1 (1.1-1.5); ALKALINE PHOSPHATASE 70 IU/L (46-116); ANION GAP 9 (8-16); ASPARTATE AMINO TRANSFERASE 11 U/L (10-37); BILIRUBIN,TOTAL 0.4 MG/DL (0.1-1.0); BLOOD UREA NITROGEN 19 MG/DL (7-18); BUN/CREATININE RATIO 18.1 (10.0-20.0); CALCIUM 8.7 MG/DL (8.5-10.1); CHLORIDE 108 MMOL/L (99-107); CREATININE 1.05 MG/DL (0.60-1.10); GLUCOSE 116 MG/DL (70-104); POTASSIUM 3.5 MMOL/L (3.5-5.1); SODIUM 141 MMOL/L (135-145); TOTAL CARBON DIOXIDE 23.8 MMOL/L (24-32); TOTAL PROTEIN 6.8 G/DL (6.4-8.2); eGFR 72 ML/MIN
== END 2023-04-10 23:53 | disposition left against medical advice (07) ==
LOC: ER 19:03
DX: R07.89 Other chest pain (principal); Z53.21 Procedure and treatment not carried out due to patient leaving prior to being seen by health care provider
CPT/HCPCS: 36415; 71045; 80053; 83880; 84484; 85025; 99281

== ENCOUNTER 2023-04-11 09:32 | Emergency (ER) | payer MEDICAID ==
[~2023-04-11] VITALS: Ht 170.2 cm; Wt 75.0 kg
[2023-04-11 11:20] VITALS: BP 139/84
[2023-04-12] MEDS ORDERED: LISI20TA28 PO (17:47)
[2023-04-12] MEDS ORDERED: CITA20TA28 PO (17:47)
[2023-04-12] MEDS ORDERED: HYDR-3686 PO (17:47)
[2023-04-12] MEDS ORDERED: OLAN5TAB5 PO (17:47)
[2023-04-12] MEDS ORDERED: NICO-687 TOP (17:47)
[2023-04-12] MEDS ORDERED: OLAN10TA21 PO (17:49)
== END 2023-04-11 11:23 | disposition home or self-care (01) ==
LOC: ER 09:32
DX: M25.511 Pain in right shoulder (principal); M54.50 Low back pain, unspecified; E78.00 Pure hypercholesterolemia, unspecified; I10 Essential (primary) hypertension; F22 Delusional disorders; G89.29 Other chronic pain; Z72.89 Other problems related to lifestyle; Z79.899 Other long term (current) drug therapy
CPT/HCPCS: 93005; 99283

== ENCOUNTER 2023-04-11 12:31 | Emergency (ER) | payer MEDICAID ==
[~2023-04-11] VITALS: Ht 170.2 cm; Wt 72.0 kg
[2023-04-11 13:25] VITALS: BP 155/86
[2023-04-12] MEDS ORDERED: LISI20TA28 PO (17:47)
[2023-04-12] MEDS ORDERED: CITA20TA28 PO (17:47)
[2023-04-12] MEDS ORDERED: OLAN5TAB5 PO (17:47)
[2023-04-12] MEDS ORDERED: NICO-687 TOP (17:47)
[2023-04-12] MEDS ORDERED: HYDR-3686 PO (17:47)
[2023-04-12] MEDS ORDERED: OLAN10TA21 PO (17:49)
== END 2023-04-11 15:01 | disposition home or self-care (01) ==
LOC: ER 12:32
DX: Z00.00 Encounter for general adult medical examination without abnormal findings (principal); M54.2 Cervicalgia; Z76.5 Malingerer [conscious simulation]; F29 Unspecified psychosis not due to a substance or known physiological condition; E78.00 Pure hypercholesterolemia, unspecified; I10 Essential (primary) hypertension; G89.29 Other chronic pain; F41.9 Anxiety disorder, unspecified; F32.A Depression, unspecified; Z72.89 Other problems related to lifestyle; Z59.00 Homelessness unspecified; Z79.899 Other long term (current) drug therapy
CPT/HCPCS: 99281

== ENCOUNTER 2023-04-12 14:13 | Emergency (ER) | payer MEDICAID ==
[~2023-04-12] VITALS: Ht 165.1 cm; Wt 72.0 kg
[2023-04-12 15:16] LABS: BASOPHILS # (AUTO) 0.1 X10'3 (0-0.2); BASOPHILS % (AUTO) 0.7 % (0-1); EOSINOPHILS # (AUTO) 0.3 X10'3 (0-0.9); EOSINOPHILS % (AUTO) 3.4 % (0-6); HEMATOCRIT 43.7 % (42.0-52.0); HEMOGLOBIN 14.6 g/dl (14.0-17.9); LYMPHOCYTES # (AUTO) 2.4 X10'3 (1.1-4.8); LYMPHOCYTES % (AUTO) 26.7 % (21-51); MEAN CORPUSCULAR HEMOGLOBIN 29.8 PG (27.0-31.0); MEAN CORPUSCULAR HGB CONC 33.3 g/dL (33.0-36.5); MEAN CORPUSCULAR VOLUME 89.4 FL (78-98); MONOCYTES # (AUTO) 0.6 X10'3 (0-0.9); MONOCYTES % (AUTO) 6.4 % (2-12); NEUTROPHILS # (AUTO) 5.6 X10'3 (1.8-7.7); NEUTROPHILS % (AUTO) 62.8 % (42-75); PLATELET COUNT 237 X10'3 (140-440); RED BLOOD COUNT 4.89 X10'6 (4.70-6.10); RED CELL DISTRIBUTION WIDTH 14.9 % (11.5-14.5); WHITE BLOOD COUNT 8.9 X10'3 (4.5-11.0)
[2023-04-12 15:25] LABS: ALANINE AMINOTRANSFERASE 19 U/L (12-78); ALBUMIN 3.4 G/DL (3.4-5.0); ALKALINE PHOSPHATASE 76 IU/L (46-116); ANION GAP 9 (8-16); ASPARTATE AMINO TRANSFERASE 15 U/L (10-37); BILIRUBIN,TOTAL 0.4 MG/DL (0.1-1.0); BLOOD UREA NITROGEN 18 MG/DL (7-18); BUN/CREATININE RATIO 18.9 (10.0-20.0); CALCIUM 8.7 MG/DL (8.5-10.1); CHLORIDE 108 MMOL/L (99-107); CREATININE 0.95 MG/DL (0.60-1.10); ETHANOL < 0.010 GM/DL (0.0-0.010); GLUCOSE 96 MG/DL (70-104); POTASSIUM 3.6 MMOL/L (3.5-5.1); SODIUM 142 MMOL/L (135-145); TOTAL CARBON DIOXIDE 25.1 MMOL/L (24-32); TOTAL PROTEIN 6.8 G/DL (6.4-8.2); eGFR 81 ML/MIN
[2023-04-12 15:37] LABS: URINE AMPHETAMINE SCREEN NEGATIVE (Neg); URINE BARBITUATE SCREEN NEGATIVE (Neg); URINE BENZODIAZEPINES SCREEN NEGATIVE (Neg); URINE CANNABINOID SCREEN NEGATIVE (Neg); URINE COCAINE SCREEN NEGATIVE (Neg); URINE METHADONE SCREEN NEGATIVE (Neg); URINE OPIATE SCREEN NEGATIVE (Neg); URINE PHENCYCLIDINE SCREEN NEGATIVE (Neg)
--- NOTE | 2023-04-12 16:40 | NUR ---
Pt. brought over from main ER with escort from two male staff. Pt. is calm and cooperative with admission assessment. Pt. changed into green scrubs, wallet sent to safe in registration. Pt. reports he is seeing people follow him and reports that he wants to kill them. Pt. reports he feels suicidal and has a plan to OD on Fentanyl. Pt. c/o bilateral arm pain and given Ibuprofen 800mg po.
[2023-04-12] MEDS ORDERED: ibuprofen tablet 400 MG TABLET PO PRN (17:10)
[2023-04-12] MEDS ORDERED: CITA20TA28 PO (17:47)
[2023-04-12] MEDS ORDERED: OLAN5TAB5 PO (17:47)
[2023-04-12] MEDS ORDERED: HYDR-3686 PO (17:47)
[2023-04-12] MEDS ORDERED: NICO-687 TOP (17:47)
[2023-04-12] MEDS ORDERED: LISI20TA28 PO (17:47)
[2023-04-12] MEDS ORDERED: OLAN10TA21 PO (17:49)
[2023-04-12] MEDS ORDERED: LORazepam 1 MG tablet PO PRN (18:05)
--- NOTE | 2023-04-12 18:16 | NUR ---
Assumed care, pt laying in bed asleep at change of shift.
[2023-04-12] MEDS ORDERED: hydrOXYzine 25 MG tablet PO PRN (19:30)
[2023-04-12] MEDS: olanzapine 10mg tablet PO SCH (19:46)
--- NOTE | 2023-04-12 20:15 | NUR ---
Pt woke to take HS meds, provided med education and answered questions regarding zyprexa. Pt states he is here because people have been following him but adds "there are multiple reasons why I'm here, thats the main one."
--- NOTE | 2023-04-12 22:24 | NUR ---
Pt is sleeping rr even and unlabored.
--- NOTE | 2023-04-13 00:48 | NUR ---
pt is asleep
--- NOTE | 2023-04-13 02:11 | NUR ---
Pt is asleep. Appears to be resting comfortably. RR 16
--- NOTE | 2023-04-13 04:31 | NUR ---
pt is asleep rr even and unlabored
--- NOTE | 2023-04-13 06:30 | NUR ---
Patient received sleeping on his left side in bed at shift change. Respirations even, unlabored. No s/s of distress. Will continue to monitor.
[2023-04-13 08:00] VITALS: BP_DIAS 100
[2023-04-13] MEDS ORDERED: lisinopril 5mg tablet PO SCH (08:00)
[2023-04-13] MEDS ORDERED: citalopram 20mg tablet PO SCH (08:00)
[2023-04-13] MEDS ORDERED: nicotine 21mg patch - 24 hr TD SCH (08:00)
--- NOTE | 2023-04-13 08:25 | NUR ---
Patient awoke for breakfast and was receptive to 1:1 assessment. Pt endorsed paranoid delusions of "being followed by people and drones". Stating that they want to "kill him and steal his stuff". He denies SI/HI, AH and VH. He is compliant with scheduled medication. Pt noted eating breakfast in his room at this time.
[2023-04-13] MEDS: olanzapine 10mg tablet PO SCH (09:27)
[2023-04-13 09:35] VITALS: BP_SYST 161
--- NOTE | 2023-04-13 09:45 | NUR ---
When discussing safe discharge plan with patient he endorsed in a threatening manner that he would "go to [facility] before he ever goes back to the [place]".
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
--- NOTE | 2023-04-13 10:10 | NUR ---
Pt observed walking to the bathroom and back to his room. This ANSWERING SERVICE OPERATOR and tech noted that there was an overwhelming stench of cigarette smoke coming from the bathroom shortly after. Hospital security contacted. Will continue to monitor.
--- NOTE | 2023-04-13 10:15 | NUR ---
This INSURANCE ACCOUNT SPECIALIST notified that patient is no longer on 5150 hold. [facility] plans to discharge patient after lunch. Due to smoking in the facility and noncompliance patient is going to be released early.
--- NOTE | 2023-04-13 10:30 | NUR ---
Pt left the unit escorted by staff and security at this time. Personal belongings and items locked in safe returned to patient. He was escorted out to the main entrance of hospital without incident.
== END 2023-04-13 10:30 | disposition home or self-care (01) ==
LOC: ER 14:13
DX: R45.850 Homicidal ideations (principal); Z20.822 Contact with and (suspected) exposure to COVID-19; F20.0 Paranoid schizophrenia; G89.29 Other chronic pain; M54.9 Dorsalgia, unspecified; E78.00 Pure hypercholesterolemia, unspecified; I10 Essential (primary) hypertension; F41.9 Anxiety disorder, unspecified; F32.A Depression, unspecified; Z56.0 Unemployment, unspecified; Z79.899 Other long term (current) drug therapy; Z79.1 Long term (current) use of non-steroidal anti-inflammatories (NSAID); Z79.2 Long term (current) use of antibiotics
CPT/HCPCS: 36415; 80053; 80305; 80320; 85025; 87811; 99285